=== PATIENT | male | born 1985 | race Caucasian/White ===

== ENCOUNTER 2016-12-10 08:34 | Emergency (ER) | payer MEDICAID ==
[2016-07-11 06:51] VITALS: BMI 24.3
[~2016-12-10 08:34] MED LIST: ADDERALL 5 MG TA5 M1 PO; ADVIL200 MG PO; BUPRENORPHIN-N1 EACH SL
== END 2016-12-10 09:42 | disposition home or self-care (01) ==
LOC: D.ER 08:34
DX: N48.21 Abscess of corpus cavernosum and penis (principal); F41.9 Anxiety disorder, unspecified

== ENCOUNTER 2016-12-13 00:43 | Emergency (ER) | payer MEDICAID ==
[2016-07-11 06:51] VITALS: BMI 24.3
== END 2016-12-13 01:30 | disposition home or self-care (01) ==
LOC: D.ER 00:43
DX: N48.21 Abscess of corpus cavernosum and penis (principal); L73.9 Follicular disorder, unspecified; N48.22 Cellulitis of corpus cavernosum and penis; F41.9 Anxiety disorder, unspecified; F17.200 Nicotine dependence, unspecified, uncomplicated

== ENCOUNTER 2017-01-21 17:21 | Emergency (ER) | payer MEDICAID ==
[2016-07-11 06:51] VITALS: BMI 24.3
== END 2017-01-21 21:31 | disposition home or self-care (01) ==
LOC: D.ER 17:21
DX: S81.811A Laceration without foreign body, right lower leg, initial encounter (principal); W45.8XXA Other foreign body or object entering through skin, initial encounter; Y92.512 Supermarket, store or market as the place of occurrence of the external cause

== ENCOUNTER 2017-02-07 10:49 | Emergency (ER) | payer MEDICAID ==
[2016-07-11 06:51] VITALS: BMI 24.3
== END 2017-02-07 13:29 | disposition home or self-care (01) ==
LOC: D.ER 10:49
DX: S81.811D Laceration without foreign body, right lower leg, subsequent encounter (principal); X58.XXXD Exposure to other specified factors, subsequent encounter; Y92.89 Other specified places as the place of occurrence of the external cause; Z48.02 Encounter for removal of sutures

== ENCOUNTER 2017-03-21 00:21 | Emergency (ER) | payer MEDICAID ==
[2016-07-11 06:51] VITALS: BMI 24.3
== END 2017-03-21 01:25 | disposition home or self-care (01) ==
LOC: D.ER 00:21
DX: S81.851A Open bite, right lower leg, initial encounter (principal); W54.0XXA Bitten by dog, initial encounter; F17.200 Nicotine dependence, unspecified, uncomplicated

== ENCOUNTER 2017-09-18 19:42 | Emergency (ER) | payer MEDICAID ==
[2016-07-11 06:51] VITALS: BMI 24.3
== END 2017-09-19 01:30 | disposition home or self-care (01) ==
LOC: D.ER 19:42
DX: Q30.2 Fissured, notched and cleft nose (principal)

== ENCOUNTER 2017-10-05 13:07 | Inpatient (IN) | payer MEDICAID ==
--- NOTE | ~2017-10-05 | HP ---
PATIENT: WENDY ANTONIO MEDICAL RECORD: [id number] ACCOUNT: [id number] LOCATION:D.[facility] : 83 ADMISSION DATE: 10/05/17 HISTORY AND PHYSICAL EXAMINATION CHIEF COMPLAINT: Pain. HISTORY OF PRESENT ILLNESS: The patient presented to the Emergency Room with back pain. As part of the workup, he underwent a CT scan. It revealed a very dilated stomach as well as proximal duodenum. 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 I saw the patient in the Emergency Room. The patient refused the NG tube. He states he has not been nauseated and has not vomited. My suspicion is that he likely will not stay in the hospital for very long and likely will sign out against medical advice. He describes this pain as severe. Movement aggravates. Nothing alleviates. This is a history and physical addendum. For the typed portion of the history and physical, please see the chart. This would include the past medical and surgical history, current medications, allergies, social history as well as family history. REVIEW OF SYSTEMS: Positive for anxiety. Positive for chronic pain. Positive for back pain. The review of systems is negative other than as is described above. PHYSICAL EXAMINATION: GENERAL: The patient appears acutely ill. Also appears chronically ill. VITAL SIGNS: Reviewed. EARS: External ears appear normal. EYES: Extraocular movements are intact. NECK: Trachea is midline. CHEST: No intercostal retractions. PULMONARY: Nonlabored, no stridor. ABDOMEN: Nontender. EXTREMITIES: No peripheral cyanosis. INTEGUMENT: Numerous tattoos. BACK: No thoracic kyphosis. LYMPHATICS: No lymphangitic streaking of the exposed extremities. PSYCHIATRIC: Anxious affect. NEUROLOGIC: He has a tremor. He appears very anxious and moves all extremities well. IMPRESSION: Small-bowel obstruction of uncertain etiology. PLAN: Admit. The patient refuses an NG tube. I have told him that this is unwise and that I would recommend that he have a nasogastric tube placed. I will order a small bowel follow through tomorrow to see if we can follow contrast through the duodenum. He does not have the typical body habitus for a person who has an SMA syndrome. 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
--- NOTE | ~2017-10-05 | DS ---
PATIENT:WENDY ANTONIO :83 MEDICAL RECORD: [id number] DISCHARGE SUMMARY ADMISSION DATE: 10/05/17 DISCHARGE DATE: 10/07/17 PRINCIPAL DIAGNOSES: 1. Ileus. 2. Back pain, likely due to nerve impingement. HOSPITAL COURSE: The patient was admitted through the Emergency Room with a bowel obstruction versus an ileus. Small bowel follow through was normal. The patient is being dismissed home. He is tolerating a diet. The patient has no current primary care doctor. He has been on Suboxone until recently. He would like to be back on Suboxone and has done very well on the medication. I am going to dismiss him with Dilaudid for pain. He needs a primary care physician. I am going to refer him to Dr. Saxena who can take care of his primary care needs, can prescribe the Suboxone and also could image his back and refer him to the neurosurgeon who shares the same office. 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
[2017-10-05 13:52] LABS: APPEARANCE CLEAR (CLEAR); BILIRUBIN NEGATIVE (NEGATIVE); COLOR YELLOW (YELLOW); GLUCOSE NEGATIVE (NEGATIVE); KETONE NEGATIVE (NEGATIVE); NITRITE NEGATIVE (NEGATIVE); PROTEIN NEGATIVE (NEGATIVE); SPECIFIC GRAVITY 1.015 (1.005-1.020); UROBILINOGEN NORMAL (NORMAL)
[2017-10-05 14:13] LABS: BASOPHILS 0.2 % (0-2); EOSINOPHILS 1.5 % (0-7); HEMATOCRIT 46.5 % (42.0-54.0); HEMOGLOBIN 15.7 g/dL (13.5-17.5); IMMATURE GRANULOCYTES 0.2 % (0-5); LYMPHOCYTES 4.7 % (15-50); MCH 29.5 pg (26.0-34.0); MCHC 33.8 g/dL (31.0-37.0); MCV 87.4 fL (80.0-100.0); MEAN PLATELET VOLUME 10.2 fL (7.4-10.4); MONOCYTES 5.2 % (2-11); NEUTROPHILS 88.2 % (40-80); RBC 5.32 10x6/uL (4.20-6.10); WBC 18.1 10x3/uL (4.8-10.8)
[2017-10-05 14:15] LABS: PLATELET COUNT 408 10x3/uL (130-400)
[2017-10-05 14:59] LABS: ALBUMIN 3.3 g/dL (3.4-5.0); ALKALINE PHOSPHATASE 63 U/L (46-116); ALT (SGPT) 34 U/L (10-68); BILIRUBIN - TOTAL 0.32 mg/dL (0.2-1.3); CALC OSMOLALITY 270 mosm/kg (275-300); CALCIUM 8.7 mg/dL (8.5-10.1); CARBON DIOXIDE 26.7 mmol/L (21.0-32.0); CHLORIDE - SERUM 102 mmol/L (98-107); CREATININE - SERUM 0.8 mg/dL (0.6-1.3); GLUCOSE 94 mg/dL (74-106); POTASSIUM - SERUM 4.3 mmol/L (3.5-5.1); PROTEIN - SERUM 7.4 g/dL (6.4-8.2); SODIUM 135 mmol/L (136-145); UREA NITROGEN 14 mg/dL (7-18); eGFR NON AFRICAN AMERICAN > 90 mL/min (90-120)
[2017-10-05 19:12] LABS: MAGNESIUM - SERUM 1.6 mg/dL (1.8-2.4); PHOSPHOROUS 2.6 mg/dL (2.5-4.9)
[2017-10-05 19:17] LABS: TROPONIN-I < 0.017 ng/mL (0.000-0.060)
[2017-10-05 20:43] LABS: UDS - AMPHET POSITIVE QUAL (NEGATIVE); UDS - BARB NEGATIVE QUAL (NEGATIVE); UDS - BENZO NEGATIVE QUAL (NEGATIVE); UDS - COCAINE NEGATIVE QUAL (NEGATIVE); UDS - OPIATE NEGATIVE QUAL (NEGATIVE); UDS - PCP NEGATIVE QUAL (NEGATIVE); UDS - THC POSITIVE QUAL (NEGATIVE)
[2017-10-06 01:01] VITALS: BP 157/102
[2017-10-06 04:07] VITALS: BP 162/104; BMI 24.4
[2017-10-06 05:39] VITALS: BP 157/103
[2017-10-06 09:20] LABS: BASOPHILS 0.3 % (0-2); EOSINOPHILS 0.4 % (0-7); HEMATOCRIT 44.5 % (42.0-54.0); HEMOGLOBIN 14.8 g/dL (13.5-17.5); IMMATURE GRANULOCYTES 0.3 % (0-5); LYMPHOCYTES 11.6 % (15-50); MCH 28.8 pg (26.0-34.0); MCHC 33.3 g/dL (31.0-37.0); MCV 86.7 fL (80.0-100.0); MEAN PLATELET VOLUME 9.6 fL (7.4-10.4); MONOCYTES 8.9 % (2-11); NEUTROPHILS 78.5 % (40-80); PLATELET COUNT 349 10x3/uL (130-400); RBC 5.13 10x6/uL (4.20-6.10); RDW 12.5 % (11.5-14.5)
[2017-10-06 09:21] LABS: WBC 11.4 10x3/uL (4.8-10.8)
[2017-10-06 09:35] LABS: ALBUMIN 3.4 g/dL (3.4-5.0); ALKALINE PHOSPHATASE 69 U/L (46-116); ALT (SGPT) 31 U/L (10-68); BILIRUBIN - TOTAL 0.46 mg/dL (0.2-1.3); CALCIUM 8.8 mg/dL (8.5-10.1); CARBON DIOXIDE 28.1 mmol/L (21.0-32.0); CHLORIDE - SERUM 99 mmol/L (98-107); GLUCOSE 105 mg/dL (74-106); MAGNESIUM - SERUM 1.7 mg/dL (1.8-2.4); POTASSIUM - SERUM 3.8 mmol/L (3.5-5.1); PROTEIN - SERUM 7.8 g/dL (6.4-8.2); SODIUM 135 mmol/L (136-145); eGFR NON AFRICAN AMERICAN > 90 mL/min (90-120)
[2017-10-06 09:37] LABS: CALC OSMOLALITY 267 mosm/kg (275-300); PHOSPHOROUS 3.5 mg/dL (2.5-4.9); UREA NITROGEN 8 mg/dL (7-18)
[2017-10-06 16:01] VITALS: BP 132/69
[2017-10-06 21:55] VITALS: BP 139/101
[2017-10-07 00:40] VITALS: BP 151/88
[2017-10-07 04:50] VITALS: BP 137/91
[2017-10-07 08:14] VITALS: BP 141/83
[2017-10-07 11:22] VITALS: BP 85/55
[2017-10-08 11:19] LABS: HEPATITIS C ANTIBODY <0.1 (0.0-0.9)
== END 2017-10-07 21:15 | disposition home or self-care (01) | DRG 390 ==
LOC: D.ER 13:07 → D.EDHOLD 18:17 → OBSVTIME 18:18 → D.MS 18:38
PROVIDERS: Family Medicine; Nurse Practitioner Family; Surgery
DX: K56.7 Ileus, unspecified (principal); M54.9 Dorsalgia, unspecified

== ENCOUNTER 2018-05-13 03:50 | Emergency (ER) | payer MEDICAID ==
[~2018-05-13] VITALS: Ht 182.9 cm; Wt 85.9 kg
[2018-05-13 03:55] VITALS: BP 145/78; Ht 182.9 cm; Wt 85.9 kg
[2018-05-13] MEDS ORDERED: CLEOCIN HCL300 MG PO (04:19)
== END 2018-05-15 04:24 | disposition home or self-care (01) ==
LOC: D.ER 03:50
DX: L72.3 Sebaceous cyst (principal); L73.9 Follicular disorder, unspecified; F17.200 Nicotine dependence, unspecified, uncomplicated

== ENCOUNTER 2018-10-17 00:20 | Emergency (ER) | payer MEDICAID ==
[~2018-10-17] VITALS: Ht 182.9 cm; Wt 85.9 kg
[~2018-10-17 00:20] MED LIST changes: +CLEOCIN HCL300 MG PO
[2018-10-17 00:24] VITALS: Ht 182.9 cm; Wt 85.9 kg
[2018-10-17] MEDS ORDERED: CLEOCIN HCL300 MG PO (00:59)
[2018-10-17 01:04] VITALS: BP 132/85
== END 2018-10-17 01:04 | disposition home or self-care (01) ==
LOC: D.ER 00:20
DX: L08.9 Local infection of the skin and subcutaneous tissue, unspecified (principal); M25.531 Pain in right wrist